=== PATIENT | female | born 1995 | race Caucasian/White ===

== ENCOUNTER 2018-01-31 06:57 | Emergency (ER) | payer MEDICAID ==
[2018-01-31 07:13] LABS: URINE BLOOD (Dip) POC 2+ (NEGATIVE); URINE GLUCOSE (Dip) POC Negative (NEGATIVE); URINE KETONES (Dip) POC Negative (NEGATIVE); URINE LEUKOCYTE EST (Dip) POC Trace (NEGATIVE); URINE NITRITE (Dip) POC Positive (NEGATIVE); URINE TOTAL PROTEIN POC Negative (NEGATIVE)
[2018-01-31] MEDS: LIDOCAINE/MYLANTA 40 ML BTL PO (07:13)
[2018-01-31] MEDS: BELLADONNA/PHENOBARBITAL TAB PO (07:13)
== END 2018-01-31 07:59 | disposition home or self-care (01) ==
LOC: FTE 06:57
DX: N30.90 Cystitis, unspecified without hematuria (principal)
CPT/HCPCS: 81003; 81025; 87086; 99283